=== PATIENT | male | born 1975 | race Caucasian/White ===

== ENCOUNTER 2021-01-30 05:28 | Emergency (ER) | payer BC ==
[~2021-01-30] VITALS: Ht 190.5 cm; Wt 122.5 kg
[~2021-01-30 05:28] MED LIST: Z.0.ATENOLOL25 MG PO
[2021-01-30 06:42] VITALS: BP 102/65
== END 2021-01-30 06:44 | disposition home or self-care (01) ==
LOC: ER 05:50
DX: H93.11 Tinnitus, right ear (principal); H90.2 Conductive hearing loss, unspecified; H69.81 Other specified disorders of Eustachian tube, right ear; I10 Essential (primary) hypertension
CPT/HCPCS: 99282